=== PATIENT | male | born 1985 | race African-American/Black ===

== ENCOUNTER 2018-12-28 21:02 | Emergency (ER) | payer SELFPAY ==
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
[2018-12-28 23:53] LABS: ABSOLUTE LYMPHOCYTES (AUTO) 2.3 10^3/uL (0.5-4.7); ABSOLUTE MONOCYTES (AUTO) 0.6 10^3/uL (0.1-1.4); ABSOLUTE NEUT (AUTO) 4.4 10^3/uL (1.7-8.2); BASOPHILS % (AUTO) 0.6 % (0-2); EOSINOPHILS % (AUTO) 0.4 % (0-6); HEMATOCRIT 43.8 % (37.9-51.0); LYMPHOCYTES % (AUTO) 30.6 % (13-45); MEAN CORPUSCULAR HEMOGLOBIN 30.4 pg (27.0-33.4); MEAN CORPUSCULAR HGB CONC 34.2 g/dL (32.0-36.0); MEAN CORPUSCULAR VOLUME 89 fl (80-97); MONOCYTES % (AUTO) 8.8 % (3-13); PLATELET COUNT 261 10^3/uL (150-450); RED BLOOD COUNT 4.92 10^6/uL (4.35-5.55); RED CELL DISTRIBUTION WIDTH 13.4 % (11.5-14.0); SEGMENTED NEUTROPHILS % (AUTO) 59.6 % (42-78); TOTAL CELLS COUNTED % (AUTO) 100 %; WHITE BLOOD COUNT 7.4 10^3/uL (4.0-10.5)
[2018-12-29 00:05] LABS: ACETAMINOPHEN < 10 ug/mL (10-30); ALANINE AMINOTRANSFERASE 20 U/L (21-72); ALBUMIN 4.9 g/dL (3.5-5.0); ALCOHOL < 10 mg/dL (NONE DETECTED); ALKALINE PHOSPHATASE 86 U/L (38-126); ANION GAP 12 (5-19); ASPARTATE AMINO TRANSFERASE 24 U/L (17-59); BILIRUBIN,DIRECT 0.3 mg/dL (0.0-0.4); BLOOD UREA NITROGEN 14 mg/dL (7-20); CALCIUM 10.2 mg/dL (8.4-10.2); CARBON DIOXIDE 29 mmol/L (22-30); CHLORIDE 101 mmol/L (98-107); GLUCOSE 92 mg/dL (75-110); POTASSIUM 3.8 mmol/L (3.6-5.0); SALICYLATE < 1.0 mg/dL (2.0-20.0); SODIUM 142.2 mmol/L (137-145); TOTAL PROTEIN 7.8 g/dL (6.3-8.2)
[2018-12-29 00:51] LABS: APPEARANCE,URINE TURBID; BILIRUBIN,URINE NEGATIVE (NEGATIVE); COLOR,URINE YELLOW; GLUCOSE, URINE NEGATIVE (NEGATIVE); KETONES,URINE TRACE mg/dL (NEGATIVE); LEUKOCYTE ESTERASE,URINE NEGATIVE (NEGATIVE); NITRITE,URINE NEGATIVE (NEGATIVE); PROTEIN,URINE 30 mg/dL (NEGATIVE); URINE SPECIFIC GRAVITY 1.033
[2018-12-29 02:46] LABS: URINE BARBITURATES SCREEN NEGATIVE; URINE BENZODIAZEPINES SCREEN NEGATIVE; URINE COCAINE SCREEN NEGATIVE; URINE MARIJUANA (THC) SCREEN UNCONFIRMED POSITIVE; URINE METHADONE SCREEN NEGATIVE; URINE PHENCYCLIDINE SCREEN NEGATIVE
--- NOTE | 2018-12-29 07:40 | EKG REPORT ---
SEVERITY:- NORMAL ECG - SINUS RHYTHM ST ELEV, PROBABLE NORMAL EARLY REPOL PATTERN : Confirmed by: Cierra Martin MD 29-Dec-2018 07:39:56
--- NOTE | 2018-12-29 09:19 | ER Document Report ---
Doctor's Note Notes: 12/29/18 09:19 32-year-old male history of bipolar, having persecutory delusions of people out to get him. Labs and vital signs are stable. Positive marijuana. Awaiting psychiatric evaluation.
[2018-12-29] MEDS: BENZTROPINE MESYLATE 1 MG TABLET PO SCH (13:20)
[2018-12-29] MEDS: OLANZAPINE 5 MG TABLET PO SCH ×2 (13:20→17:18)
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
[2018-12-30] MEDS: BENZTROPINE MESYLATE 1 MG TABLET PO SCH (09:35)
[2018-12-30] MEDS: OLANZAPINE 5 MG TABLET PO SCH ×2 (09:35→17:51)
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
[2018-12-31] MEDS: BENZTROPINE MESYLATE 1 MG TABLET PO SCH (10:53)
[2018-12-31] MEDS: OLANZAPINE 5 MG TABLET PO SCH (10:53)
--- NOTE | 2018-12-31 11:10 | ER Document Report ---
Doctor's Note Notes: 12/31/18 11:09 Patient seen and examined. No acute events overnight. Taking his medications without difficulty. I asked him if he felt safe for that he had yesterday. He states "not really, but I have got to get on with my life." He denies any pain or acute complaints at this time. Physical exam reveals a pleasant 32-year-old male, appears stated no acute distress. He maintains better eye contact, is more open and cooperative with examiner. Head is normocephalic atraumatic. Heart is regular rate and rhythm, lungs are clear to all station bilaterally. Skin is warm and dry. Assessment and plan this patient does have a stream paranoia and persecutory delusions. They seem to be improved. His affect is improved. He seems to be hopeful about discharge and life overall. Will defer to psych for management and official disposition.
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
[2018-12-31 16:01] VITALS: BP 127/59
== END 2018-12-31 16:01 | disposition home or self-care (01) ==
LOC: EEVIPCON 21:02 → ER 21:02
DX: F22 Delusional disorders (principal); F31.9 Bipolar disorder, unspecified; F12.10 Cannabis abuse, uncomplicated; F17.200 Nicotine dependence, unspecified, uncomplicated
CPT/HCPCS: 36415; 80053; 80307; 81001; 85025; 93005; 93010

== ENCOUNTER 2019-03-04 11:21 | Emergency (ER) | payer SELFPAY ==
[2019-03-04 11:25] VITALS: BP 150/85
--- NOTE | 2019-03-04 11:43 | ER Document Report ---
HPI - HPI Patient complains to provider of: dental pain Time Seen by Provider: 03/04/19 11:40 Onset: Other - 2 weeks ago Onset/Duration: Gradual Quality of pain: Throbbing Severity: Moderate Pain Level: 3 Context: This is a 33-year-old male with listed past medical history presenting with toothache. Patient states this has been ongoing for about 14 days. Patient describes the pain in the mouth as a 6 out of 10, sharp, aching, is located in the left lower posterior part of the mouth. States he broke this tooth about 2 weeks ago. Awaiting his Medicaid to go through. Has not followed up with a dentist. Tylenol not controlling pain. Patient denies any difficulty swallowing. Patient denies any difficulty handling secretions. Patient states normal appetite and fluid intake. Patient denies any fever or chills. Patient denies any radiation of pain into the neck. Patient states that chewing, and hot and cold make the pain worse. Palpation makes pain worse and rest makes it better. Patient denies any difficulty breathing. Patient denies all complaints at this time. Patient is here for pain control. No recent antibiotics or steroids. No history of diabetes or asthma. Associated Symptoms: denies: Chest pain, Productive cough, Diarrhea, Drooling, Fever, Nausea, Vomiting, Shortness of breath, Sore throat Exacerbated by: Food, Other - Palpation Relieved by: Remaining still Similar symptoms previously: Yes Recently seen / treated by doctor: No - ROS Systems Reviewed and Negative: Yes All other systems reviewed and negative - To include 10 systems, unless mentioned in the hpi. Past Medical History - General Information source: Patient - Social History Smoking Status: Current Every Day Smoker Frequency of alcohol use: None Drug Abuse: Marijuana Family History: Reviewed & Not Pertinent Patient has suicidal ideation: No Patient has homicidal ideation: No Endocrine Medical History: Denies: Hx Diabetes Mellitus Type 1, Hx Diabetes Mellitus Type 2 Renal/ Medical History: Denies: Hx Peritoneal Dialysis Psychiatric Medical History: Reports: Hx Bipolar Disorder, Other - Paranoia - Immunizations Immunizations up to date: Yes Vertical Provider Document - CONSTITUTIONAL Notes: >>>> PHYSICAL_EXAM: GENERAL_APPEARANCE: well_nourished, alert, cooperative, no_acute_distress, no_obvious_discomfort. Pleasant, young black male, asleep when I enter the room, easily arousable, in no sign of pain or respiratory distress, speaking in full sentences, no one is with him VITALS:reviewed, see vital signs table. EYES: PERRL, EOMI, conjunctiva_clear. NOSE: no_nasal_discharge. MOUTH: (-)decreased moisture. there are multiple dental caries noted. Tooth #17 and 18 are broken, eroded to gumline, and extremely carious. There is no localization for inflammation. There is no buccal swelling and tenderness to palpation. Uvula is midline. There is no trismus. There is no TMJ clicking produced most tenderness over the sternocleidomastoid muscles. There is no tenderness over the thyroid cartilage. There is no submandibular hardness. No drooling, tripoding, voice change, or stridor. Tongue protrudes midline. No tongue or lip swelling. THROAT: no_tonsilar_inflammation/exudate/hypertrophy, no_airway_obstruction. NECK: supple, no_neck_tenderness, (-)thyromegaly. Full range of motion and full strength. No lymphadenopathy. No meningeal signs. LUNGS: no_wheezing, (-)accessory muscle use, good air exchange bilateral. HEART: normal_rate, normal_rhythm, EXTREMITIES: strength 5/5 in all extremities, good pulses in all extremities, no swelling\tenderness in the extremities, no edema. full rom. normal gait NEURO: motor and sensation intact to light touch, cranial nerves 2-12 intact SKIN: warm, dry, good_color, no_rash. MENTAL_STATUS: speech_clear, oriented_X_3 , normal_affect, responds_appropriately to questions. - INFECTION CONTROL TRAVEL OUTSIDE OF THE [place] IN LAST 30 DAYS: No Course - Re-evaluation Re-evalutation: 03/04/19 12:11 This patient presents with tooth ache at this time. Patient is completely neurovascularly intact. Patient in no acute distress. There is no emergency that is present at this time. There was no localized gingival inflammation. There was no buccal swelling. Patient had no signs of active abscess at this time. Patient will be started on antibiotics and pain control. will dc with penicillin VK and naproxen. Advised medication precautions, no other NSAIDs with the naproxen, advised symptomatic care. He was given Toradol here with improvement of his symptoms. Definitive treatment is a dentist, and this was thoroughly explained to the patient. Pt will follow up closely with dentist in 1-2 days. If the patient has any acute change or worsening or concerning sx patient will return to emergency Department immediately. Patient verbalized understanding and was in agreement with this treatment plan. Patient remained in stable condition and was very pleasant. vss. afebrile. well appearing. satting well on ra. On reexam, pt improved with tx listed. remained stable. nontoxic. well appearing. pain controlled. tolerating po. requesting to go home. Neuro nonfocal. Appears clinically hydrated. Documentation achieved through voice recording which my lead to some occasional accidental typographical errors. Extensive efforts have been made to proof read documentation to make sure these are the least as possible. Category Date Time Status Ketorolac Tromethamine [Toradol Inj/Pf 60 mg/2 ml Sdv] Med 03/04/19 12:05 Once 60 mg IM NOW ONE - Vital Signs Vital signs: Temp Pulse Resp BP Pulse Ox 98.1 F 66 13 150/85 H 97 03/04/19 11:24 03/04/19 11:24 03/04/19 11:24 03/04/19 11:24 03/04/19 11:24 03/04/19 12:13 Temp Pulse Resp BP Pulse Ox 03/04/19 11:24 98.1 F 66 13 150/85 H 97 Discharge - Discharge Clinical Impression: Pain due to dental caries Condition: Good Disposition: HOME, SELF-CARE Instructions: Toothache ([facility]) Additional Instructions: Take the medication as prescribed. Do not take any other NSAIDs with the naproxen. Follow-up with dentist 1 to 2 days. Return for any worsening symptoms. Prescriptions: Naproxen 500 mg PO BID PRN #20 tablet PRN Reason: Penicillin V Potassium [Penicillin Vk 500 mg Tablet] 500 mg PO QID #40 tablet
[2019-03-04] MEDS ORDERED: KETOROLAC TROMETHAMINE 60 MG/2 ML SDV IM ONE (12:05)
== END 2019-03-04 12:54 | disposition home or self-care (01) ==
LOC: ER 11:21
DX: K02.9 Dental caries, unspecified (principal); F17.200 Nicotine dependence, unspecified, uncomplicated
CPT/HCPCS: 99282; 96372; J1885